=== PATIENT | female | born 1995 | race African-American/Black ===

== ENCOUNTER 2017-02-15 22:33 | Emergency (ER) | payer SELFPAY ==
[~2017-02-15] VITALS: Ht 154.9 cm; Wt 63.8 kg
[2017-02-15 22:35] VITALS: BP 119/69
[2017-02-15 23:17] LABS: BACTERIA,URINE 0 /HPF (0-FEW); BILIRUBIN,URINE NEG (NEG); CLARITY,URINE CLEAR; COLOR,URINE YELLOW; GLUCOSE,URINE NEG (NEG); NITRITE,URINE NEG (NEG); RBC,URINE 0 /HPF (0-2); SQUAMOUS EPITHELIAL CELL,UR FEW /LPF; UROBILINOGEN,URINE 0.2 mg/dL (0.2 mg/dL); WBC,URINE OCC /HPF (0-4)
[2017-02-15] MEDS ORDERED: PROMETHAZINE 25MG 4TABLET STARTPACK. PO ONE (23:45)
--- NOTE | 2017-02-16 04:30 | ED.ADGEN ---
Past History Past Medical History: No Pertinent History Past Surgical History: No Surgical History Smoking: Non-smoker Alcohol Use: Rarely Drug Use: None Adult General Chief Complaint Chief Complaint Nausea vomiting HPI HPI Patient is a 21-year-old -Chinese female who presents with daily nausea with occasional vomiting, weight gain and breast tenderness. Patient's last menstrual period was over a month ago. Review of Systems Review of Systems Review symptoms as per history of present illness. Current Medications Current Medications Current Medications Medications (Trade) Dose Ordered Sig/Peace Start Time Stop Time Status Last Admin Dose Admin Promethazine HCl (Starter Pack - Phenergan) 1 startpack 1X ONCE 02/15/17 23:45 02/15/17 23:45 DC Allergies Allergies Allergies Coded Allergies Type Severity Reaction Last Updated Verified No Known Drug Allergies 02/15/17 No Physical Exam Physical Exam Constitutional: Well developed, well nourished, no acute distress, non-toxic appearance. [] HENT: Normocephalic, atraumatic, bilateral external ears normal, oropharynx moist, no oral exudates, nose normal. [] Eyes: PERRLA, EOMI, conjunctiva normal, no discharge. [] Neck: Normal range of motion, no tenderness, supple, no stridor. [] Cardiovascular:Heart rate regular rhythm, no murmur [] Lungs & Thorax: Bilateral breath sounds clear to auscultation [] Abdomen: Bowel sounds normal, soft, no tenderness, no masses, no pulsatile masses. [] Skin: Warm, dry, no erythema, no rash. [] Back: No tenderness, no CVA tenderness. [] Extremities: No tenderness, no cyanosis, no clubbing, ROM intact, no edema. [] Neurologic: Alert and oriented X 3, normal motor function, normal sensory function, no focal deficits noted. [] Psychologic: Affect normal, judgement normal, mood normal. [] Current Patient Data Vital Signs Vital Signs Date Time Temp Pulse Resp B/P (MAP) Pulse Ox O2 Delivery O2 Flow Rate FiO2 02/15/17 22:35 98.6 84 16 100 Room Air Lab Results Laboratory Tests Test 02/15/17 22:35 Urine Collection Type Unknown Urine Color Yellow Urine Clarity Clear Urine pH 7.5 Urine Specific [place] 1.020 Urine Protein Neg (NEG-TRACE) Urine Glucose (UA) Neg mg/dL (NEG) Urine Ketones (Stick) Neg mg/dL (NEG) Urine Blood Neg (NEG) Urine Nitrite Neg (NEG) Urine Bilirubin Neg (NEG) Urine Urobilinogen Dipstick 0.2 mg/dL (0.2 mg/dL) Urine Leukocyte Esterase Neg (NEG) Urine RBC 0 /HPF (0-2) Urine WBC Occ /HPF (0-4) Urine Squamous Epithelial Cells Few /LPF Urine Bacteria 0 /HPF (0-FEW) EKG EKG [] Radiology/Procedures Radiology/Procedures [] Course & Med Decision Making Course & Med Decision Making Pertinent Labs and Imaging studies reviewed. (See chart for details) [ test is positive. Recommend supportive care with HOME SCHOOL COORDINATOR follow-up.] Final Impression Final Impression [#1 nausea and vomiting in ] Problems: Dragon Disclaimer Dragon Disclaimer This electronic medical record was generated, in whole or in part, using a voice recognition dictation system. DAMIEN FLORES DO Feb 16, 2017 04:30
== END 2017-02-15 23:45 | disposition home or self-care (01) ==
LOC: ER 22:33
DX: R11.2 Nausea with vomiting, unspecified (principal); R63.5 Abnormal weight gain; Z33.1 Pregnant state, incidental
CPT/HCPCS: 81001; 81025; 99283

== ENCOUNTER 2017-04-26 20:34 | Emergency (ER) | payer OTHER ==
[~2017-04-26] VITALS: Ht 154.9 cm; Wt 66.7 kg
[2017-04-26 21:54] VITALS: BP 129/73
[2017-04-26] MEDS ORDERED: POLY10DR EACHEYE (21:59)
--- NOTE | 2017-04-26 22:03 | PHYS DOC ---
General Chief Complaint: MULTIPLE COMPLAINTS Stated Complaint: LEFT EYE PROBLEM,SHARP PAIN IN BREAST Time Seen by MD: 21:58 Source: patient Exam Limitations: no limitations Problems: History of Present Illness Initial Comments Patient is a 21-year-old 113 weeks gestation female who comes to the ED with 2 complaints. Patient states that for the past 2 days she's had clear nasal discharge with a dry cough and this morning woke up with her left eye matted shut with greenish yellow discharge. She's had left eye burning and itching no foreign body sensation no visual changes the patient does not work contact lenses. She has no pain with extraocular motion and is concerned she may have pinkeye. Patient also states that she's had discomfort in her left breast. She states that it is located in the center of her breast. Admittedly she is wearing bras that are too small because she says her breasts are increasing in size faster than she can buy bras to fit. No masses palpated and no nipple discharge no history of breast cancer in her family she's had some right-sided tenderness as well. Timing/Duration: other Severity: mild Location: eye (L) Prearrival Treatment: other Modifying Factors: improves with other Associated Symptoms: other Allergies: Coded Allergies: No Known Drug Allergies (Unverified , 02/15/17) Past Medical History Medical History: no pertinent history Surgical History: noncontributory LMP (Females 10-50): Social History Smoker: non-smoker Alcohol: none Drugs: none Constitutional: denies chills, denies diaphoresis, denies fever, denies malaise Eyes: see HPI Ears: denies dizziness, denies pain, denies tinnitus Nose: denies clots, congestion, denies epistaxis Throat: denies pain, denies swelling, denies discharge Respiratory: denies shortness of breath Cardiovascular: denies chest pain, denies palpitations Gastrointestinal: denies diarrhea, denies nausea, denies vomiting Musculoskeletal: denies back pain, denies joint swelling, denies neck pain Physical Exam General Appearance: WD/WN, no apparent distress Eyes: right eye normal inspection, left eye other (conjunctivae injected no discharge noted in the ED), bilateral eye PERRL, bilateral eye EOMI Nose: normal inspection Mouth/Throat: normal mouth inspection, pharynx normal Neck: non-tender, supple Skin: normal color, warm/dry Comments Breasts: Patient evaluated with nurse present, there is no asymmetry no masses palpable no nipple discharge or retraction. Mild bilateral tenderness elicited consistent with no abnormal focal findings. Orders, Labs, Meds I discussed signs and symptoms to monitor as well as indications for urgent return to the department. I discussed follow-up with patient's OB for next regularly scheduled evaluation and have them evaluate her breasts at that time as well. I discussed prescription and [id number]-[id number] medication as well as properly fitting bra was. Patient's questions were answered to her satisfaction and she expressed agreement and understanding of treatment plan. Departure Time of Disposition: 22:01 Disposition: 01 HOME, SELF-CARE Diagnosis: conjunctivitis, related breast tendernes Condition: GOOD Patient Instructions: Breast Tenderness, Conjunctivitis (Viral and Bacterial), Medicines During Additional Instructions: Please review the patient education materials given by ED staff. Do your best to wear the proper size bra as her progresses. Linen changes as discussed with aggressive handwashing. No work or school for the next 2 days. Prescription: Polytrim Follow-up with your investigative agent per their recommendations. Return to ED with new or changing symptoms. STEPHY KNOX DO Apr 26, 2017 22:03
== END 2017-04-26 22:08 | disposition home or self-care (01) ==
LOC: ER 20:34
DX: O26.892 Other specified pregnancy related conditions, second trimester (principal); O92.29 Other disorders of breast associated with pregnancy and the puerperium; O99.511 Diseases of the respiratory system complicating pregnancy, first trimester; H10.9 Unspecified conjunctivitis; R09.89 Other specified symptoms and signs involving the circulatory and respiratory systems; Z3A.13 13 weeks gestation of pregnancy
CPT/HCPCS: 99283

== ENCOUNTER 2017-05-17 23:34 | Emergency (ER) | payer SELFPAY ==
[~2017-05-17] VITALS: Ht 154.9 cm; Wt 68.0 kg
[~2017-05-17 23:34] MED LIST: POLY10DR EACHEYE
--- NOTE | 2017-05-18 00:09 | PHYS DOC ---
Past History Past Medical History: No Pertinent History Past Surgical History: No Surgical History Smoking: Non-smoker Alcohol Use: None Drug Use: None Adult General Chief Complaint Chief Complaint: RECTAL BLEED HPI HPI Patient is a 21-year-old female who presents with chief complaint of rectal bleeding that started today, it happens once. No history of trauma, no previous episodes. Patient is 4 months , denies any abdominal or vaginal pain or vaginal bleeding. Patient states she's had a mild cramping of her upper abdomen Review of Systems Review of Systems Constitutional: Denies fever or chills [] HENT: Denies recent problems Respiratory: Denies cough or shortness of breath [] Cardiovascular: No chest pain GI: Denies abdominal pain, nausea, vomiting. As per history of present illness : Denies dysuria or hematuria [] Musculoskeletal: Denies back pain or joint pain [] Integument: Denies rash or skin lesions [] Neurologic: Denies headache, focal weakness or sensory changes [] All other systems were reviewed and found to be within normal limits, except as documented in this note. Allergies Allergies Allergies Coded Allergies Type Severity Reaction Last Updated Verified No Known Drug Allergies 02/15/17 No Physical Exam Physical Exam Constitutional: Well developed, well nourished, no acute distress, non-toxic appearance. [] HENT: Normocephalic, atraumatic, Eyes: EOMI, conjunctiva normal, no discharge. [] Neck: Normal range of motion, trachea midline, no stridor. [] Cardiovascular:Heart rate regular rhythm, no murmur, equal pulses, normal perfusion Lungs & Thorax: Bilateral breath sounds clear to auscultation, no tachypnea Abdomen: Bowel sounds normal, soft, no tenderness, no masses, no pulsatile masses. [] : Normal rectal tone, brown stool, no evidence of bleeding. Skin tags present. Skin: Warm, dry, no erythema, no rash. [] Back: No tenderness, no CVA tenderness. [] Extremities: No tenderness,, ROM intact, no edema. [] Neurologic: Alert and oriented X 3, normal motor function,, no focal deficits noted. [] Psychologic: Affect normal, judgement normal, mood normal. [] Current Patient Data Vital Signs Vital Signs Date Time Temp Pulse Resp B/P (MAP) Pulse Ox O2 Delivery O2 Flow Rate FiO2 05/17/17 23:40 98.9 88 18 99 Room Air EKG EKG [] Radiology/Procedures Radiology/Procedures [] Course & Med Decision Making Course & Med Decision Making Pertinent Labs and Imaging studies reviewed. (See chart for details) 0037 patient in no distress, watching TV. Vital signs unremarkable. No visible discomfort Patient called blood Blood positive. Patient physical exam is unremarkable, and there is no gross bleeding. Vital signs are unremarkable. Had discussion with the patient as to the possibilities as to what happened including but not limited to skin tear, hemorrhoids, heart stools, etc. Given the patient's age, lack of previous medical history, benign exam and no gross or brisk bleeding per rectum I do not believe the patient is in need of inpatient evaluation at the time of this ED evaluation nor does the patient needs immediate evaluation by GI for scope. Strict return precautions have been discussed with the patient and the need for follow-up and recheck has been discussed. Patient understands and agrees, no reservations on being discharged home. Patient is discharged in no distress, in stable condition. [] Dragon Disclaimer Dragon Disclaimer This electronic medical record was generated, in whole or in part, using a voice recognition dictation system. Departure Departure: Impression: Primary Impression: Rectal bleed Disposition: HOME, SELF-CARE Condition: STABLE Referrals: PCP,NO (PCP) Please follow-up with your PCP or at one of the clinics in the list provided to you for recheck and reevaluation and to establish care. Patient Instructions: Rectal Bleeding Scripts Pnv Cmb#95/Ferrous Fumarate/Fa ( TABLET) 1 Each Tablet 1 TAB PO DAILY, #30 TAB 11 Refills Prov: Emelia MCKEON MD 05/18/17 Emelia MCKEON MD May 18, 2017 00:09
[2017-05-18 00:15] LABS: FECAL OB PT POSITIVE (NEG)
[2017-05-18 00:34] LABS: BACTERIA,URINE FEW /HPF (0-FEW); BILIRUBIN,URINE NEG (NEG); CLARITY,URINE HAZY; COLOR,URINE YELLOW; GLUCOSE,URINE NEG (NEG); NITRITE,URINE NEG (NEG); RBC,URINE OCC /HPF (0-2); SQUAMOUS EPITHELIAL CELL,UR MANY /LPF; UROBILINOGEN,URINE 0.2 mg/dL (0.2 mg/dL)
[2017-05-18] MEDS ORDERED: PNV1TABL25 PO (00:39)
[2017-05-18 00:40] VITALS: BP 122/72
== END 2017-05-18 00:43 | disposition home or self-care (01) ==
LOC: ER 23:34
DX: O26.892 Other specified pregnancy related conditions, second trimester (principal); K62.5 Hemorrhage of anus and rectum; Z3A.16 16 weeks gestation of pregnancy
CPT/HCPCS: 81001; 82274; 99284

== ENCOUNTER 2018-01-06 01:32 | Emergency (ER) | payer OTHER ==
[~2018-01-06] VITALS: Ht 154.9 cm; Wt 68.0 kg
[~2018-01-06 01:32] MED LIST changes: +PNV1TABL25 PO
[2018-01-06 01:49] VITALS: BP 137/79
--- NOTE | 2018-01-06 02:00 | PHYS DOC ---
Past History Past Medical History: No Pertinent History Past Surgical History: Smoking: Non-smoker Additional Smoking Information: SMOKES BLACK AND MILD CIGARS Alcohol Use: None Drug Use: None Adult General Chief Complaint Chief Complaint: VAGINAL PROBLEM HPI HPI 22-year-old female presents with 2 week history of "yeast infection". Patient reports she was diagnosed with one in addition to a urinary tract infection by [facility] 10 days ago. Reports she was given antibiotics for urinary tract infection but doesn't believe they gave her anything for her yeast infection. Patient did undergo pelvic exam and was tested for both chlamydia and gonorrhea. Patient reports she would tested negative. Reports she has just had "chunky white" discharge to vaginal area. Denies any fever or chills. Denies dysuria or hematuria. Patient reports she 2 months . Review of Systems Review of Systems Constitutional: Denies fever or chills [] GI: Denies abdominal pain, nausea, vomiting, or diarrhea [] : Denies dysuria or hematuria [] Musculoskeletal: Denies back pain or joint pain [] Integument: Reports itching to vaginal area with rash Neurologic: Denies headache, focal weakness or sensory changes [] MEDICAL BILLING SUPERVISOR: Reports "white chunky" discharge Complete systems were reviewed and found to be within normal limits, except as documented in this note. Allergies Allergies Allergies Coded Allergies Type Severity Reaction Last Updated Verified No Known Drug Allergies 02/15/17 No Physical Exam Physical Exam Constitutional: Well developed, well nourished, no acute distress, non-toxic appearance. [] HENT: Normocephalic, atraumatic, oropharynx moist Eyes: conjunctiva normal, no discharge. [] Cardiovascular: Heart rate regular rhythm, no murmur [] Lungs & Thorax: Bilateral breath sounds clear to auscultation [] Abdomen: Soft, no tenderness Skin: Warm, dry, no erythema, yeasty rash noted to vaginal area : Trial Justice: Sara BATISTA; Yeast noted inside folds of labia, Slight folliculitis noted near shaved mons pubis Neurologic: Alert and oriented X 3 Psychologic: Affect normal, judgement normal, mood normal. [] Current Patient Data Vital Signs Vital Signs Date Time Temp Pulse Resp B/P (MAP) Pulse Ox O2 Delivery O2 Flow Rate FiO2 01/06/18 01:49 98.1 78 18 97 Room Air Lab Results Laboratory Tests Test 01/06/18 01:04 POC Urine HCG, Qualitative hcg negative (Negative) EKG EKG [] Radiology/Procedures Radiology/Procedures [] Course & Med Decision Making Course & Med Decision Making Patient presents with history of present illness and physical exam consistent for vulvovaginal candidiasis. Diflucan provided. Patient recently completed antibiotics for urinary tract infection and denies current symptoms. Patient also reports full examination for possible STDs which she reports was negative at [facility]. Patient stable for discharge with outpatient follow-up with PCP/MEDICAL BILLING SUPERVISOR. Discussed findings and plan with patient, who acknowledges understanding and agreement. Dragon Disclaimer Dragon Disclaimer This electronic medical record was generated, in whole or in part, using a voice recognition dictation system. Departure Departure: Impression: Primary Impression: Vulvovaginal candidiasis Disposition: 01 HOME, SELF-CARE Condition: STABLE Referrals: PCP,NO (PCP) Patient Instructions: Candidal Vulvovaginitis, Izmf-qq-Qfoe Scripts Fluconazole (DIFLUCAN) 200 Mg Tablet 1 TAB PO DAILY for yeast infection, #1 TAB May take on 01/09/18 if continued symptoms Prov: ANDREY HIGGINS DO 01/06/18 ANDREY HIGGINS DO Jan 06, 2018 02:00
[2018-01-06] MEDS ORDERED: FLUC200T PO (02:11)
[2018-01-06] MEDS ORDERED: FLUCONAZOLE 100 MG TABLET. PO ONE (02:15)
== END 2018-01-06 02:15 | disposition home or self-care (01) ==
LOC: ER 01:32
DX: B37.3 Candidiasis of vulva and vagina (principal); Z87.440 Personal history of urinary (tract) infections; F17.210 Nicotine dependence, cigarettes, uncomplicated
CPT/HCPCS: 81025; 99283

== ENCOUNTER 2020-11-19 09:44 | Emergency (ER) | payer MEDICAID, OTHER ==
[~2020-11-19] VITALS: Ht 154.9 cm; Wt 80.0 kg
[~2020-11-19 09:44] MED LIST changes: +FLUC200T PO
[2020-11-19 09:54] VITALS: BP 136/79
--- NOTE | 2020-11-19 10:08 | PHYS DOC ---
Past History Past Medical History: No Pertinent History (ALYSE TREVINO APRN) Past Surgical History: (ALYSE TREVINO APRN) Smoking: Non-smoker Alcohol Use: None Drug Use: None (ALYSE TREVINO APRN) General Adult EDM: Chief Complaint: VAGINAL PROBLEM HPI: HPI: Patient is a 25-year-old female who presents to the ER today for vaginal discharge, itching, odor that started 2 weeks ago. Patient reports that she does have a concern for STIs as she participates in unprotected sex. Patient has a history of chlamydia and has been treated. Patient reports that the vaginal discharge is yellow/shipman and in. Patient's last menstrual period was Ju ly 24. Patient denies nausea, vomiting, vaginal bleeding, dysuria, urinary frequency/urgency. (ALYSE TREVINO APRN) Review of Systems: Review of Systems: 14 body systems of the review of systems have been reviewed. See HPI for pertinent positive and negative responses, otherwise all other systems are negative, nonpertinent or noncontributory (ALYSE TREVINO APRN) Allergies: Allergies: Allergies Coded Allergies Type Severity Reaction Last Updated Verified No Known Drug Allergies 02/15/17 No (ALYSE TREVINO APRN) Physical Exam: PE: Constitutional: Well developed, well nourished, no acute distress, non-toxic appearance. [] HENT: Normocephalic, atraumatic Eyes: PERRL, conjunctiva normal, no discharge. [] Neck: Normal range of motion, no stridor Cardiovascular:Heart rate regular rhythm, no murmur [] Lungs & Thorax: Bilateral breath sounds clear to auscultation [] Abdomen: Bowel sounds normal, soft, no tenderness, no masses, no pulsatile masses. [] Skin: Warm, dry, no erythema, no rash. [] Back: No tenderness, no CVA tenderness. [] Extremities: No tenderness, no cyanosis, no clubbing, ROM intact, no edema. [] Neurologic: Alert and oriented X 3, normal motor function, normal sensory function, no focal deficits noted. [] Psychologic: Affect normal, judgement normal, mood normal. [] (ALYSE TREVINO APRN) Current Patient Data: Vital Signs: Vital Signs Date Time Temp Pulse Resp B/P (MAP) Pulse Ox O2 Delivery O2 Flow Rate FiO2 11/19/20 09:54 80 18 136/79 99 (ALYSE TREVINO APRN) EKG: EKG: [] (ALYSE TREVINO APRN) Radiology/Procedures: Radiology/Procedures: [] (ALYSE TREVINO APRN) Heart Score: C/O Chest Pain: No Risk Factors: Risk Factors: DM, Current or recent (<one month) smoker, HTN, HLP, family history of CAD, obesity. Risk Scores: Score 0 - 3: 2.5% MACE over next 6 weeks - Discharge Home Score 4 - 6: 20.3% MACE over next 6 weeks - Admit for Clinical Observation Score 7 - 10: 72.7% MACE over next 6 weeks - Early Invasive Strategies (ALYSE TREVINO APRN) Course & Med Decision Making: Course & Med Decision Making Pertinent Labs and Imaging studies reviewed. (See chart for details) [] Patient is a 25-year-old female who presents to the ER for vaginal discharge, itching, odor. A UA was performed and it showed a urinary tract infection. Culture of the urine will be sent out. Patient will be treated with an antibiotic. Patient self swabbed for gonorrhea/chlamydia and wet prep. Patient reports that she recently had a Pap smear and a pelvic exam and she did not feel the need to have another pelvic exam today. Wet prep was positive for BV and trichomoniasis. Patient discharged home with a prescription for clindamycin to treat bacterial vaginosis as patient reports that she cannot take Flagyl because she has nausea and vomiting with the even though she does not take it with alcohol.. Patient will be notified of her gonorrhea and Chlamydia results when they become available. Patient reports that she would like to be preventatively treated for STIs. Patient will be treated with Rocephin and doxycycline. (ALYSE TREVINO APRN) Dragon Disclaimer: Dragon Disclaimer: This electronic medical record was generated, in whole or in part, using a voice recognition dictation system. (ALYSE TREVINO APRN) Attending Co-Sign The patient was seen and interviewed as well as examined at the bedside. The chart was reviewed. The case was discussed. Agree with the plan of care. (DAMIEN KOENIG DO) Departure Departure: Impression: Primary Impression: Urinary tract infection Qualified Codes: N30.01 - Acute cystitis with hematuria Additional Impressions: Trichomoniasis Bacterial vaginosis Disposition: HOME / SELF CARE / HOMELESS Condition: GOOD Referrals: PCP,NO (PCP) Patient Instructions: Sexually Transmitted Disease, Urinary Tract Infection Additional Instructions: You were seen in the ER today for vaginal discharge, itching, odor. Your urinalysis was positive for urinary tract infection you will be discharged home with an antibiotic called Maru to treat this. Please start and finish his antibiotic completely. Please increase your fluids at home. Avoid bladder irritants like caffeine, sugary beverages, alcohol. You can take Tylenol or ibuprofen for your pain. You were also positive for trichomonas which is a sexually transmitted infection. You were treated in the ER with antibiotics to treat gonorrhea, chlamydia, trichomonas. You will receive a phone call with your chlamydia and gonorrhea results when they become available. Please abstain from sexual intercourse for 7-10 days. You were also noted to be positive for bacterial vaginosis. This is an overgrowth of your natural bacteria in your vagina. This is not a sexually transmitted infection. You are treated with an antibiotic to treat the bacterial vaginosis. Please follow-up with your primary care provider tomorrow regarding your ER visit today. If you develop abdominal pain, uncontrollable nausea vomiting, fevers, back pain please return to the ER immediately. EMERGENCY DEPARTMENT GENERAL DISCHARGE INSTRUCTIONS Thank you for coming to [facility] (ED) today and trusting us with you care. We trust that you had a positivie experience in our Emergency Department. If you wish to speak to the department management, you may call the director at [phone]. YOUR FOLLOW UP INSTRUCTIONS ARE FOLLOWS: 1. Do you have a private Doctor? If you do not have a private doctor, please ask for a resource list of physicians or clinics that may be able to assist you with follow up care. 2. The Emergency Physician has interpreted your x-rays. The X-Ray specialist will also review them. If there is a change in the findings, you will be notified in 48 hours when at all possible. 3. A lab test or culture has been done, your results will be reviewed and you will be notified if you need a change in treatment. ADDITIONAL INSTRUCTIONS AND INFORMATION: 1. Your care today has been supervised by a physician who is specially trained in emergency care. Many problems require more than one evaluation for a complete diagnosis and treatment. We recommend that you schedule your follow up appointment as recommended to ensure complete treatment of you illness or injury. If you are unable to obtain follow up care and continue to have a problem, or if your condition worsens, we recommend that you return to the ED. 2. We are not able to safely determine your condition over the phone nor are we able to give sound medical advice over the phone. For these safety reasons, if you call for medical advice we will ask you to come to the ED for further evaluation. 3. If you have any questions regarding these discharge instructions please call the ED at [phone]. SAFETY INFORMATION: In the interest of safety, wellness, and injury prevention; we encourage you to wear your sealbelt, if you smoke; quite smoking, and we encourage family to use a protective helmet for bicycling and other sporting events that present an increased risk for head injury. IF YOUR SYMPTOMS WORSEN OR NEW SYMPTOMS DEVELOP, OR YOU HAVE CONCERNS ABOUT YOUR CONDITION; OR IF YOUR CONDITION WORSENS WHILE YOU ARE WAITING FOR YOUR FOLLOW UP APPOINTMENT; EITHER CONTACT YOUR PRIMARY CARE DOCTOR, THE PHYSICIAN WHOSE NAME AND NUMBER YOU WERE GIVEN, OR RETURN TO THE ED IMMEDIATELY. Scripts Clindamycin Hcl (CLINDAMYCIN HCL) 300 Mg Capsule 1 CAP PO BID for BV for 7 Days, #14 CAP 0 Refills Prov: ALYSE TREVINO APRN 11/19/20 Cephalexin (CEPHALEXIN) 500 Mg Tablet 1 TAB PO BID for UTI for 7 Days, #14 TAB 0 Refills Prov: ALYSE TREVINO APRN 11/19/20 ALYSE TREVINO APRN Nov 19, 2020 10:08 DAMIEN KOENIG DO Nov 22, 2020 20:58
[2020-11-19 10:23] LABS: BILIRUBIN,URINE NEG (NEG); CLARITY,URINE HAZY; COLOR,URINE YELLOW; GLUCOSE,URINE NEG (NEG)
[2020-11-19 10:24] LABS: NITRITE,URINE NEG (NEG); UROBILINOGEN,URINE 0.2 mg/dL (0.2 mg/dL)
[2020-11-19 10:25] LABS: BACTERIA,URINE FEW /HPF (0-FEW); RBC,URINE OCC /HPF (0-2); SQUAMOUS EPITHELIAL CELL,UR MOD /LPF
[2020-11-19 10:26] LABS: TRICHOMONAS,URINE PRESENT
[2020-11-19] MEDS ORDERED: DOXYCYCLINE HYCLATE 100 MG TABLET PO ONE (10:45)
[2020-11-19] MEDS ORDERED: cefTRIAXone IM 500 MG VIAL. IM ONE (10:45)
[2020-11-19] MEDS ORDERED: CEPH500T PO (11:09)
[2020-11-19] MEDS ORDERED: CLIN300C9 PO (11:09)
[2020-11-21 02:06] LABS: CHLAMYDIA PROBE Negative (Negative)
== END 2020-11-19 11:26 | disposition home or self-care (01) ==
LOC: ER 09:44
DX: N39.0 Urinary tract infection, site not specified (principal); N76.0 Acute vaginitis; A59.9 Trichomoniasis, unspecified
CPT/HCPCS: 81001; 81025; 87086; 87491; 87591; 96372; 99283; J0696; Q0111

== ENCOUNTER 2020-12-24 09:33 | Emergency (ER) | payer OTHER ==
[~2020-12-24] VITALS: Ht 154.9 cm; Wt 80.0 kg
[~2020-12-24 09:33] MED LIST changes: +CEPH500T PO; +CLIN300C9 PO
[2020-12-24 09:49] VITALS: BP 149/89
--- NOTE | 2020-12-24 10:41 | PHYS DOC ---
Past History Past Medical History: No Pertinent History Past Surgical History: Smoking: Non-smoker Alcohol Use: None Drug Use: None General Adult EDM: Chief Complaint: VAGINAL PROBLEM HPI: HPI: Patient is a 25-year-old female who presents to the ER today for white milky vaginal discharge, vaginal odor, vaginal itching and fatigue that started a couple of days ago. Patient was seen in this ER on November 19 for the same symptoms and was tested for STIs. She was positive for gonorrhea. She received treatment. She states that her sexual partner received treatment also and they have been sexually active. Patient is concerned that she may have developed another STI. Patient states she has a history of BV and the vaginal discharge looks like the discharge she has with bacterial vaginosis. Due to patient's fatigue, she was screened for COVID-19 symptoms. She is reporting a nonproductive cough. She denies nasal congestion/drainage, shortness of breath, fevers. She reports that her mother is sick with similar symptoms but was not diagnosed with COVID-19. Review of Systems: Review of Systems: 14 body systems of the review of systems have been reviewed. See HPI for pertinent positive and negative responses, otherwise all other systems are negative, nonpertinent or noncontributory Allergies: Allergies: Allergies Coded Allergies Type Severity Reaction Last Updated Verified No Known Drug Allergies 02/15/17 No Physical Exam: PE: Constitutional: Well developed, well nourished, no acute distress, non-toxic appearance. [] HENT: Normocephalic, atraumatic Eyes: PERRL, EOMI, conjunctiva normal, no discharge. [] Neck: Normal range of motion, no stridor Cardiovascular: Normal peripheral perfusion Lungs & Thorax: Bilateral breath sounds clear to auscultation [] Abdomen: Bowel sounds normal, soft, no tenderness, no masses, no pulsatile masses. [] Skin: Warm, dry, no erythema, no rash. [] Back: No tenderness, no CVA tenderness. [] Extremities: No tenderness, no cyanosis, no clubbing, ROM intact, no edema. [] Neurologic: Alert and oriented X 3, normal motor function, normal sensory functi on, no focal deficits noted. [] Psychologic: Affect normal, judgement normal, mood normal. [] Current Patient Data: Labs: Laboratory Tests Test 12/24/20 10:06 POC Urine HCG, Qualitative hcg negative (Negative) Laboratory Tests Test 12/24/20 09:50 12/24/20 10:06 Urine Collection Type Unknown Urine Color Yellow Urine Clarity Hazy Urine pH 6.5 Urine Specific Proctor 1.025 Urine Protein Neg Urine Glucose (UA) Neg mg/dL Urine Ketones (Stick) Neg mg/dL Urine Blood Neg Urine Nitrite Neg Urine Bilirubin Neg Urine Urobilinogen Dipstick 0.2 mg/dL Urine Leukocyte Esterase Small Urine RBC 3-5 /HPF Urine WBC 5-10 /HPF Urine Squamous Epithelial Cells Many /LPF Urine Bacteria Few /HPF Urine Trichomonas Present Bedside Urine HCG, Qualitative hcg negative Current Medications Medications (Trade) Dose Ordered Sig/Peace Route PRN Reason Start Time Stop Time Status Last Admin Dose Admin Ceftriaxone Sodium (Rocephin Im) 500 mg 1X ONCE IM 12/24/20 11:15 12/24/20 11:16 DC 12/24/20 11:12 Doxycycline Hyclate (Vibra-Tab) 100 mg 1X ONCE PO 12/24/20 11:15 12/24/20 11:16 DC 12/24/20 11:12 Vital Signs: Vital Signs Date Time Temp Pulse Resp B/P (MAP) Pulse Ox O2 Delivery O2 Flow Rate FiO2 12/24/20 09:49 97.9 67 16 149/89 100 Room Air EKG: EKG: [] Radiology/Procedures: Radiology/Procedures: [] Heart Score: C/O Chest Pain: No Risk Factors: Risk Factors: DM, Current or recent (<one month) smoker, HTN, HLP, family history of CAD, obesity. Risk Scores: Score 0 - 3: 2.5% MACE over next 6 weeks - Discharge Home Score 4 - 6: 20.3% MACE over next 6 weeks - Admit for Clinical Observation Score 7 - 10: 72.7% MACE over next 6 weeks - Early Invasive Strategies Course & Med Decision Making: Course & Med Decision Making Pertinent Labs and Imaging studies reviewed. (See chart for details) [] Patient is a 25-year-old female being seen in the ER for vaginal discharge, odor, itching, fatigue. Patient was seen in this ER on November 19 for similar complaints with positive for gonorrhea, bacterial vaginosis, trichomonas. P atient states that she received treatment following diagnosis. She states that she notified her sexual partners and time and they also got treated. Patient reports that she had sexual contact with a previous partner prior to symptoms starting. Patient will be tested for COVID-19 due to her symptoms of fatigue and a nonproductive cough. She will be notified of those results when they become available in approximately 2 days. Patient advised to self isolate until she receives these results. Patient chose to forego a pelvic exam and she performs self swab for gonorrhea, chlamydia, bacterial vaginosis, trichomonas. Patient was positive for urinary tract infection, BV and trichomonas. Patient be treated with an antibiotic and metronidazole over 7 days for persistent trichomonas infection and BV.. Patient would like to be treated prophylactically for STIs. Patient treated with Rocephin and doxycycline. Patient advised to have her sexual partners tested for STIs. Patient advised to abstain from sexual intercourse for 10 days. I discussed with patient all findings and diagnostic testing as well as the need to follow-up with PCP for further evaluation and treatment or return to the ER if any new or worsening symptoms. Strict return precautions were also discussed at length. Patient voiced understanding and agreement with the plan. Patient is hemodynamically stable at the time of disposition. Dragon Disclaimer: [place] Disclaimer: This electronic medical record was generated, in whole or in part, using a voice recognition dictation system. Departure Departure: Impression: Primary Impression: Bacterial vaginosis Additional Impressions: Trichomoniasis Urinary tract bacterial infections Disposition: HOME / SELF CARE / HOMELESS Condition: GOOD Referrals: PCP,NO (PCP) Patient Instructions: Bacterial Vaginosis, Sexually Transmitted Disease, Urinary Tract Infection Additional Instructions: You were seen in the ER for vaginal discharge, odor, itching, fatigue. You were tested in the ER for COVID-19. You will receive these results in approximately 2 days. Please self isolate until you receive your results. You were tested in the ER today for gonorrhea, chlamydia, bacterial vaginosis, trichomonas. Today you were positive for bacterial vaginosis, trichomoniasis, urinary tract infection. You will be notified in approximately 2 days with your results for your gonorrhea and Chlamydia testing. You chose to be treated in the ER preventatively. You were given a shot of an antibiotic in the ER today and you are discharged with a prescription for another antibiotic. You are also discharged home with an antibiotic to treat your urinary tract infection and metronidazole to treat the bacterial vaginosis and trichomonas. Please make sure that you start and finish this completely. You will need to avoid all with metronidazole as it will cause severe vomiting. Please avoid any sexual contact for 10 days. Please notify your sexual partners that you are being tested for STIs and they should be tested as well. Avoid reinfection. Please increase your fluids, rest, you can take Tylenol/ibuprofen for any pain or fevers. Follow-up with your primary care provider tomorrow regarding your ER visit. If you do not have an YEAST CULTURE OPERATOR, you may benefit from obtaining one if you continue to have vaginal discharge and odor. Please return to the ER if you develop severe abdominal pain, intractable nausea or vomiting, fevers, shortness of breath, chest pain or any new or worsening concerns. EMERGENCY DEPARTMENT GENERAL DISCHARGE INSTRUCTIONS Thank you for coming to [facility] (ED) today and trusting us with you care. We trust that you had a positivie experience in our Emergency Department. If you wish to speak to the department management, you may call the director at [phone]. YOUR FOLLOW UP INSTRUCTIONS ARE FOLLOWS: 1. Do you have a private Doctor? If you do not have a private doctor, please ask for a resource list of physicians or clinics that may be able to assist you with follow up care. 2. The Emergency Physician has interpreted your x-rays. The X-Ray specialist will also review them. If there is a change in the findings, you will be notified in 48 hours when at all possible. 3. A lab test or culture has been done, your results will be reviewed and you will be notified if you need a change in treatment. ADDITIONAL INSTRUCTIONS AND INFORMATION: 1. Your care today has been supervised by a physician who is specially trained in emergency care. Many problems require more than one evaluation for a complete diagnosis and treatment. We recommend that you schedule your follow up appointment as recommended to ensure complete treatment of you illness or injury. If you are unable to obtain follow up care and continue to have a problem, or if your condition worsens, we recommend that you return to the ED. 2. We are not able to safely determine your condition over the phone nor are we able to give sound medical advice over the phone. For these safety reasons, if you call for medical advice we will ask you to come to the ED for further evaluation. 3. If you have any questions regarding these discharge instructions please call the ED at [phone]. SAFETY INFORMATION: In the interest of safety, wellness, and injury prevention; we encourage you to wear your sealbelt, if you smoke; quite smoking, and we encourage family to use a protective helmet for bicycling and other sporting events that present an increased risk for head injury. IF YOUR SYMPTOMS WORSEN OR NEW SYMPTOMS DEVELOP, OR YOU HAVE CONCERNS ABOUT YOUR CONDITION; OR IF YOUR CONDITION WORSENS WHILE YOU ARE WAITING FOR YOUR FOLLOW UP APPOINTMENT; EITHER CONTACT YOUR PRIMARY CARE DOCTOR, THE PHYSICIAN WHOSE NAME AND NUMBER YOU WERE GIVEN, OR RETURN TO THE ED IMMEDIATELY. Scripts Metronidazole (METRONIDAZOLE) 500 Mg Tablet 1 TAB PO BID for BV for 7 Days, #14 TAB 0 Refills Prov: ALYSE TREVINO APRN 12/24/20 Cephalexin (KEFLEX) 500 Mg Capsule 1 CAP PO BID for uti for 7 Days, #14 CAP 0 Refills Prov: ALYSE TERVINO APRN 12/24/20 Doxycycline Hyclate (DOXYCYCLINE HYCLATE) 100 Mg Tablet 1 TAB PO BID for sti for 7 Days, #13 TAB 0 Refills Prov: ALYSE TREVINO APRN 12/24/20 ALYSE TREVINO APRN Dec 24, 2020 10:41
[2020-12-24] MEDS: DOXYCYCLINE HYCLATE 100 MG TABLET PO ONE (11:12)
[2020-12-24] MEDS: cefTRIAXone IM 500 MG VIAL. IM ONE (11:12)
[2020-12-24 11:54] LABS: BILIRUBIN,URINE NEG (NEG); CLARITY,URINE HAZY; COLOR,URINE YELLOW; GLUCOSE,URINE NEG (NEG); NITRITE,URINE NEG (NEG); UROBILINOGEN,URINE 0.2 mg/dL (0.2 mg/dL)
[2020-12-24 11:55] LABS: BACTERIA,URINE FEW /HPF (0-FEW); SQUAMOUS EPITHELIAL CELL,UR MANY /LPF; TRICHOMONAS,URINE PRESENT
[2020-12-24] MEDS ORDERED: CEPH500C PO (12:40)
[2020-12-24] MEDS ORDERED: METR-34 PO (12:40)
[2020-12-24] MEDS ORDERED: DOXY100T PO (12:40)
[2020-12-25 20:07] LABS: CHLAMYDIA PROBE Negative (Negative)
== END 2020-12-24 12:46 | disposition home or self-care (01) ==
LOC: ER 09:33
DX: N76.0 Acute vaginitis (principal); A59.9 Trichomoniasis, unspecified; A48.8 Other specified bacterial diseases; Z20.822 Contact with and (suspected) exposure to COVID-19
CPT/HCPCS: 81001; 81025; 87086; 87491; 87591; 96372; 99283; C9803; J0696; Q0111; U0003